=== PATIENT | male | born 1980 | race Caucasian/White ===

== ENCOUNTER 2017-03-22 03:27 | Emergency (ER) | payer MEDICAID, OTHER ==
[~2017-03-22] VITALS: Ht 162.6 cm; Wt 73.5 kg
[2017-03-22 03:36] VITALS: Ht 162.6 cm; Wt 73.5 kg
[2017-03-22 04:26] LABS: ADD SCAN DIFF NO
[2017-03-22 04:28] LABS: BASOPHILS % 0.3 % (0.0-2.0); EOSINOPHILS # 0.1 10^3/ul (0.0-0.5); EOSINOPHILS % 0.7 % (0.0-7.0); HEMATOCRIT 44.7 % (42.0-52.0); HEMOGLOBIN 16.1 g/dl (14.0-18.0); LYMPHOCYTES # 1.3 10^3/ul (0.8-2.9); LYMPHOCYTES % 17.7 % (15.0-51.0); MEAN CORPUSCULAR HEMOGLOBIN 33.5 pg (29.0-33.0); MEAN CORPUSCULAR VOLUME 92.9 fl (82.0-101.0); MEAN PLATELET VOLUME 9.3 fl (7.4-10.4); MONOCYTE # 0.3 10^3/ul (0.3-0.9); MONOCYTES % 4.4 % (0.0-11.0); NEUTROPHIL # 5.6 10^3/ul (1.6-7.5); NEUTROPHILS % 76.6 % (39.0-77.0); PLATELET COUNT 302 10^3/UL (140-415); RED BLOOD COUNT 4.81 10^6/ul (4.70-6.10); RED CELL DISTRIBUTION WIDTH 12.4 % (11.5-14.5); WHITE BLOOD COUNT 7.3 10^3/ul (4.8-10.8)
[2017-03-22] MEDS ORDERED: DIPHTH/TET/ACEL PERTUSS (ADULT) 0.5 ML VIAL IM* ONE (04:30)
[2017-03-22] MEDS ORDERED: CEFAZOLIN 2 GM/50 ML (PMX) 50 ML IVPB ONE (04:30)
[2017-03-22 04:42] LABS: INR 0.93; POTASSIUM 3.8 mmol/L (3.5-5.1); PROTIME 12.5 Sec (12.2-14.2)
[2017-03-22 04:45] LABS: CREATININE 0.6 mg/dl (0.61-1.24)
[2017-03-22 04:46] LABS: CALCIUM 9.1 mg/dl (8.4-10.2)
[2017-03-22 04:47] LABS: PARTIAL THROMBOPLASTIN TIME 23.5 Sec (25.0-35.0)
--- NOTE | 2017-03-22 04:56 | RADRPT ---
PROCEDURE: Left hand x-ray CLINICAL INDICATION: Trauma TECHNIQUE: AP, lateral and oblique views were obtained. COMPARISON: None FINDINGS: No fracture or dislocation is seen. There is a soft tissue injury in the web space between the seco nd third digits with a small of air seen. No foreign body is seen. Old ulnar styloid fracture frag ment is seen. IMPRESSION: Soft tissue injury in the web space between the second third digit without visible foreign body. No definite fracture. RPTAT: [facility] Physician Jill Date Time Electronically viewed and signed by Lydia Marcelo Physician on 03/22/2017 04:56 LE/
--- NOTE | 2017-03-22 05:16 | ERD ---
ER Documentation Chief Complaint Date/Time DATE: 03/22/17 TIME: 05:08 Chief Complaint left 2nd,3rd fingers poss open fx, door fell, smashed fingers x 1 hour ago HPI 36-year-old male who is intoxicated presenting with an injury to his left hand. He states he drank about 6 beers tonight. He was going home and trying to open his door when he fell forward and his hand got stuck in the door hinge. He denies any other injuries or pain. He does not know when his last tetanus vaccine was. He states that his middle finger is a little numb but he is able to feel. His pain is a 5 out of 10. ROS All systems reviewed and are negative except as per history of present illness. Medications Home Meds No Active Prescriptions or Reported Meds Allergies Allergies: Coded Allergies: No Known Drug Allergies (Verified Allergy, Unknown, 03/22/17) PMhx/Soc Medical and Surgical Hx: pt denies Medical Hx, pt denies Surgical Hx Hx Alcohol Use: Yes Hx Substance Use: No Hx Tobacco Use: No Smoking Status: Never smoker Physical Exam Vitals Vital Signs Date Time Temp Pulse Resp B/P Pulse Ox O2 Delivery O2 Flow Rate FiO2 03/22/17 03:36 97.9 88 20 132/77 97 Physical Exam Const: Well-appearing, no apparent distress, appears intoxicated Head: Atraumatic Eyes: Normal Conjunctiva ENT: Normal External Ears, Nose and Mouth. Neck: Full range of motion..~ No meningismus. Resp: Clear to auscultation bilaterally Cardio: Regular rate and rhythm, no murmurs Abd: Soft, non tender, non distended. Normal bowel sounds Skin: No petechiae or rashes Back: No midline or flank tenderness Ext: No cyanosis, or edema Left upper extremity: Palmar surface of hand with a vertical laceration at the level of the third digit extending up to the base of the third digit into the webspace. Laceration is deep with exposed flexor tendons are all lacerated. There is no arterial bleeding. Sensations are intact distally but diminished compared to other fingers. All other digits normal with full range of motion. Unable to actively flex middle finger but able to extend without issues. CR < 2 sec. Full AROM in Wrist/Elbow/Shoulder. Neur: Awake and alert and oriented 3, cranial nerves intact Psych: Normal Mood and Affect Result Diagram: 03/22/17 0415 03/22/17 0415 Results 24 hrs Laboratory Tests Test 03/22/17 04:15 White Blood Count 7.310^3/ul Red Blood Count 4.8110^6/ul Hemoglobin 16.1g/dl Hematocrit 44.7% Mean Corpuscular Volume 92.9fl Mean Corpuscular Hemoglobin 33.5pg Mean Corpuscular Hemoglobin Concent 36.0g/dl Red Cell Distribution Width 12.4% Platelet Count 27252^3/UL Mean Platelet Volume 9.3fl Neutrophils % 76.6% Lymphocytes % 17.7% Monocytes % 4.4% Eosinophils % 0.7% Basophils % 0.3% Nucleated Red Blood Cells % 0.0/100WBC Neutrophils # 5.610^3/ul Lymphocytes # 1.310^3/ul Monocytes # 0.310^3/ul Eosinophils # 0.110^3/ul Basophils # 0.010^3/ul Nucleated Red Blood Cells # 0.010^3/ul Prothrombin Time 12.5Sec Prothrombin Time Ratio 1.0 INR International Normalized Ratio 0.93 Activated Partial Thromboplast Time 23.5Sec Sodium Level 146mmol/L Potassium Level 3.8mmol/L Chloride Level 104mmol/L Carbon Dioxide Level 25mmol/L Anion Gap 21 Blood Urea Nitrogen 9mg/dl Creatinine 0.60mg/dl Glucose Level 111mg/dl Calcium Level 9.1mg/dl Ethyl Alcohol Level 173.0mg/dl Current Medications Medications (Trade) Dose Ordered Sig/Balwinder Route PRN Reason Start Time Stop Time Status Last Admin Dose Admin Diphtheria/ Tetanus/Acell Pertussis 0.5 ml 0.5 ml ONCE ONCE IM* 03/22/17 04:30 03/22/17 04:31 DC 03/22/17 04:29 Cefazolin Sodium/ Dextrose (Ancef 2 Gm/50 ml (Pmx)) 50 ml @ 100 mls/hr ONCE ONCE IVPB 03/22/17 04:30 03/22/17 04:59 DC 03/22/17 04:38 Procedures/MDM Patient is presenting with a laceration of the left hand with tendon injury and possible nerve injury. He is hemodynamically stable. His labs are unremarkable other than an elevated alcohol level. Hand x-ray did not show evidence of foreign body or acute fracture. The wound was irrigated and dressing was placed. Ancef 2 g IV was given. Tetanus vaccine was updated. I spoke with [facility], who accepted the patient for transfer for higher level of care as he will need a hand surgeon. Patient was notified about the transfer and the plan. Departure Diagnosis: Primary Impression: Laceration of left hand involving tendon Encounter type: initial encounter Qualified Code: S61.412A - Laceration of left hand involving tendon, initial encounter Additional Impression: Alcohol intoxication Complication of substance-induced condition: uncomplicated Qualified Code: F10.120 - Alcohol intoxication, uncomplicated Condition: Fair SOTERO DARBY MD March 22, 2017 05:16
[2017-03-22 07:12] VITALS: BP 109/59; PULSE 83; RESP 14; TEMP 97.8
== END 2017-03-22 07:15 | disposition short-term general hospital (02) ==
LOC: E/R 03:27
DX: S61.412A Laceration without foreign body of left hand, initial encounter (principal); F11.20 Opioid dependence, uncomplicated; W23.1XXA Caught, crushed, jammed, or pinched between stationary objects, initial encounter; Y92.9 Unspecified place or not applicable; Z23 Encounter for immunization
CPT/HCPCS: 36415; 73130; 80048; 80306; 85025; 85610; 85730; 86850; 86900; 86901; 90471; 90715; 96374; J0690; Z7502

== ENCOUNTER 2017-04-13 10:13 | Emergency (ER) | payer MEDICAID ==
[~2017-04-13] VITALS: Ht 165.1 cm; Wt 73.0 kg
[2017-04-13 10:14] VITALS: Ht 165.1 cm; Wt 73.0 kg
--- NOTE | 2017-04-13 12:19 | ERD ---
ER Documentation Chief Complaint Date/Time DATE: 04/13/17 TIME: 12:18 Chief Complaint LEFT MIDDLE FINGER WOUND RECHECK HPI This a 36-year-old male who presents to the emergency department today for a work note. Patient states that he had an injury to his finger and was seen here in the emergency room and was sent to hospital in [place]. States that he tried to call a doctor over there but he has been unable to get in touch with anybody. States that he called the emergency room and they told him that he needed to be seen there and to go to an emergency room. Denies any fevers or chills. ROS All systems reviewed and are negative except as per history of present illness. Medications Home Meds No Active Prescriptions or Reported Meds Allergies Allergies: Coded Allergies: No Known Drug Allergies (Verified Allergy, Unknown, 03/22/17) PMhx/Soc Hx Alcohol Use: Yes Hx Substance Use: No Hx Tobacco Use: No Physical Exam Vitals Vital Signs Date Time Temp Pulse Resp B/P Pulse Ox O2 Delivery O2 Flow Rate FiO2 04/13/17 10:14 98.3 91 18 149/85 99 Physical Exam Const: NAD Head: Atraumatic Eyes: Normal Conjunctiva ENT: Normal External Ears, Nose and Mouth. Neck: Full range of motion..~ No meningismus. Resp: Clear to auscultation bilaterally Cardio: Regular rate and rhythm, no murmurs Skin: No petechiae or rashes MSK: Left hand with no obvious deformity. Mild effusion. No erythema or warmth. Mild skin sloughing patient unable to completely extend the finger. Wound well-healed and well approximated pulses 2+. Good cap refill. Neur: Awake and alert Psych: Normal Mood and Affect Procedures/MDM This a 36-year-old male who presents to the emergency department today for a work note after sustaining an injury to his finger on March 22, 2017. Upon review of patient's medical records patient was intoxicated when he presented to the emergency room here at [facility] with an injury to his left hand. Per report he was trying to open a door when he fell forward and his hand got stuck in the door. Patient was transferred to [facility] as there appeared to be a deep laceration with exposed flexor tendons all lacerated. There was no fracture or dislocation per radiology report. Per report of the patient he did try calling to [facility] and was unable to get in touch with anybody who may have done his surgery and was told that he needed to go to an emergency room to be seen. Patient was unable to tell me whether the tendons were repaired or if only the laceration was closed as he was put under general anesthesia and he did not remember. Patient did not bring any paperwork with him. 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 On physical exam wound appears to be well-healed and well approximated over dorsal aspect of the left third finger. There is some skin sloughing from wound healing. There is no erythema or warmth. Patient is unable to fully extend the finger however have low suspicion for flexor tenosynovitis at this time. Patient is afebrile and otherwise well-appearing. He denies any significant pain. He has had no new trauma. Low suspicion for sepsis, deep space infection, cellulitis I explained to the patient that I would give him a return to work for light duty but that he would need full clearance from his surgeon over at [facility] and he would need to return there for that. Patient had indicated that he was moving next week to [place] for a different job. At this time the patient is stable for discharge and outpatient management. Patient should follow up with their PCP in the next 1-2 days. They may return to the emergency department sooner for any persistent or worsening of symptoms. Patient understood and agreed with the plan. Discussed the patient with Dr. Posadas and he is in agreement with the plan Departure Diagnosis: Primary Impression: Encounter for wound re-check Condition: Fair Patient Instructions: Wound Care, Wound Check, Lac F/U (No Infection) Referrals: your surgeon Additional Instructions: Llame al doctor SUZY y lexi phillip VERNA PARA DENTRO DE 1-2 MORSE.Dgale a la secretaria que nosotros le instruimos hacer esta verna.Avise o llame si jaquez condicin se empeora antes de la verna. Regresa aqui si peor o no mejor. Make an appointment with your hand surgeon for full return to work CHADWICK RIOS PA-C Apr 13, 2017 12:19
[2017-04-13 12:28] VITALS: BP 148/86; PULSE 73; RESP 12; TEMP 97.8
== END 2017-04-13 12:28 | disposition home or self-care (01) ==
LOC: FTE 10:13
DX: Z48.00 Encounter for change or removal of nonsurgical wound dressing (principal)
CPT/HCPCS: 99281